=== PATIENT | male | born 1945 | race Two or more races ===

== ENCOUNTER 2023-12-18 06:05 | Day surgery (SDC) | payer OTHER ==
[2023-12-03 11:49] LABS: HEMOGLOBIN 15.3 g/dL (13-16.00); MEAN CELL VOLUME 92.3 fL (80.0-100.00); MEAN CORPUSCULAR HEMOGLOBIN 32.9 pg (27.00-32.0); MEAN CORPUSCULAR HGB CONC 35.6 g/dl (32.0-36.0); PLATELET COUNT 255 K/uL (150-450); RED BLOOD COUNT 4.66 M/uL (4.00-6.00); RED CELL DISTRIBUTION WIDTH 13.3 % (11.5-14.5)
[2023-12-03 12:16] LABS: URINE APPEARANCE Clear; URINE BILIRRUBIN Negative (NEGATIVE); URINE BLOOD Negative; URINE COLOR Yellow; URINE GLUCOSE Negative (NEGATIVE); URINE LEUKOCYTE Negative; URINE NITRATE Negative; URINE PROTEIN Negative (NEGATIVE); URINE UROBILINOGEN 0.2 E.U./dl
[2023-12-03 12:31] LABS: URINE BACTERIA 2.5 uL (0.0-1933); URINE EPITHELIAL CELLS 0.1 uL (0.0-38.8); URINE RBC 1.1 uL (0.0-20.8); URINE WBC 1.1 uL (0.0-23.2)
[2023-12-03 12:33] LABS: CALCIUM 9.8 mg/dL (8.5-10.1); CREATININE SERUM 0.8 mg/dL (0.70-1.30); GFR 93.49; POTASSIUM 4.39 mEq/L (3.5-5.1)
[2023-12-03 12:44] LABS: INR 0.98; PROTHROMBIN TIME 10.3 SECONDS (9.0-11.5)
[~2023-12-18 06:05] MED LIST: AMLODIPINE-OLM1 EAC2; SYNTHROID75 MCG PO; TENORMIN25 MG PO
[2023-12-18] MEDS ORDERED: BUPIVACAINE HCL/PF 0.5% 30ML ML ONE (11:19)
[2023-12-18] MEDS ORDERED: ENOXAPARIN SODIUM 40 MG/0.4 ML SYRINGE SUBCUTANEO ONE (11:19)
[2023-12-18] MEDS ORDERED: ERTAPENEM SODIUM 1,000 MG VIAL ONE (11:20)
[2023-12-18] MEDS ORDERED: ENOXAPARIN SODIUM 40 MG/0.4 ML SYRINGE SUBCUTANEO SCH (11:45)
[2023-12-18] MEDS ORDERED: PERCOCET 5-3251 EACH PO (13:32)
[2023-12-18] MEDS ORDERED: NEURONTIN300 MG PO (13:32)
[2023-12-18] MEDS ORDERED: COLACE100 MG PO (13:33)
[2023-12-18] MEDS ORDERED: ERTAPENEM SODIUM 1,000 MG VIAL IV ONE (13:45)
== END 2023-12-18 17:50 | disposition home or self-care (01) ==
LOC: CIR.AMB 06:05
PROVIDERS: ATTEND Surgery
DX: K40.90 Unilateral inguinal hernia, without obstruction or gangrene, not specified as recurrent (principal)
CPT/HCPCS: 49650; C1781